=== PATIENT | male | born 1970 | race Caucasian/White ===

== ENCOUNTER 2018-12-12 19:19 | Emergency (ER) | payer BC ==
--- OUTSIDE RECORDS SUMMARY | 2018-12-12 19:22 | XMS REPORT | Encounter Summary ---
:1970 Author Reason for Visit Medical Complaint Instructions 1. Acute gastroenteritis ondansetron 8 mg disintegrating tablet 2. Influenza-like symptoms rapid flu (A+B) 3. Body mass index 25-29 - overweight 4. Elevated blood-pressure reading without diagnosis of hypertension elevated blood pressure: care instructions Discussion Note: None recorded. Plan of Care Patient Instructions Food Poisoning: Care Instructions Your Care Instructions Food poisoning occurs when you eat foods that contain harmful germs. Food can be contaminated while it is growing, during processing, or when it is prepared. Fresh fruits and vegetables also can be cont aminated if they are washed in contaminated water. You may have become ill after eating undercooked meat or eggs or other unsafe foods. Cooking foods thoroughly and storing them properly can help prevent food poisoning. There are many types of food poisoning. Your symptoms depend on the type of food poisoning you have. You will probably begin to feel better in 1 or 2 days. In the meantime, get plenty of rest and make sure that you do not become dehydrated. Follow-up care is a andrews part of your treatment and safety. Be sure to make and go to all appointments, and call your doctor if you are having problems. It s also a good idea to know your test results and keep a list of the medicines you take. How can you care for yourself at home? To prevent dehydration, drink plenty of fluids, enough so that your urine is light yellow or clear like water. Choose water and other caffeine-free clear liquids until you feel better. If you hav e kidney, heart, or liver disease and have to limit fluids, talk with your doctor before you increase the amount of fluids you drink. Begin eating small amounts of mild, low-fat foods, depending on how you feel. Try foods like rice, dry crackers, bananas, and applesauce. Avoid spicy foods, alcohol, and coffee until 48 hours after all symptoms have disappeared. Avoid chewing gum that contains sorbitol. Avoid dairy products for 3 days after symptoms disappear. Take your medicines as prescribed. Call your doctor if you think you are having a problem with your medicine. You will get more details on the specific medicines your doctor prescribes. To prevent food poisoning Keep hot foods hot and cold foods cold. Do not eat meats, dressings, salads, or other foods that have been kept at room temperature for more than 2 hours. Use a thermometer to check your refrigerator. It should be between 34 F and 40ÂF. Defrost meats in the refrigerator or microwave, not on the kitchen counter. Keep your hands and your kitchen clean. Wash your hands, cutting boards , and countertops with hot, soapy water. If you use the same cutting board for chopping vegetables and preparing raw meat, b e sure to wash the cutting board with hot, soapy water between each use. Cook meat until it is well done. Do not eat raw eggs or uncooked dough or sauces made with raw eggs. Do not take chances. If you think food looks or tastes spoiled, throw it out. When should you call for help? Call 911 anytime you think you may need emergency care. For example, call if: You have sudden, severe belly pain. You passed out (lost consciousness). You vomit blood or what looks like coffee grounds. You pass maroon or very bloody stools. Call your doctor now or seek immediate medical care if: You have signs of needing more fluids. You have sunken eyes and a dry mouth, and you pass only a little dark urine. Weakness in your legs makes it hard to stand or walk. You have swelling in your hands, face, or feet. You have trouble breathing. You are dizzy or lightheaded, or you feel like you may faint. Your stools are black and tarlike or have streaks of blood. You have numbness and tingling in your hands or feet. You have new nausea or vomiting. You have new or increased belly pain. Your joints ache. Watch closely for changes in your health, and be sure to contact your doctor if : Your vomiting is not getting better after 1 to 2 days. Your diarrhea is not getting better after 3 days. Where can you learn more? Go to www.[facility].Letsdecco, log into the web portal, and enter C880 in the search box to learn more about Food Poisoning: Care Instructions. Care instructions adapted under license by [facility]. This care instruction is for use with your licensed healthcare professional. If you have questions about a medical condition or this instruction, always ask your healthcare professional. [employer] disclaims any warranty or liability for your use of this information. When You Are Overweight: Care Instructions Your Care Instructions If you're overweight, your doctor may recommend that you make changes in your eating and exercise habits. Being overweight can lead to serious health problems , such as high blood pressure, heart disease , type 2 diabetes, and arthritis, or it can make these problems worse. Eating a healthy diet and being more active can help you reach and stay at a healthy weight. You dont have to make huge changes all at once. Start by making small changes in your eating and exercise habits. To lose weight, you need to burn more calories than you take in. You c an do this by eating healthy foods in reasonable amounts and becoming more active every day. Follow-up care is a andrews part of your treatment and safety. Be sure to make and go to all appointments, and call your doctor if you are having problems. It's also a good idea to know your test results and keep a list of the medicines you take. How can you care for yourself at home? Improve your eating habits. You'll be more successful if you work on changing one eating habit at a time. All foods, if eaten in moderation, can be part of healthy eating. Remember to: Eat a variety of foods from each food group. Include grains, vegetables, fruits , dairy, and protein foods. Limit foods high in fat, sugar, and calories. Eat slowly. And don't do anything else, such as watch TV, while you are eating. Pay attention to portion sizes. Put your food on a smaller plate. Plan your meals ahead of time. You'll be less likely to grab something that's not as healthy. Get active. Regular activity can help you feel better, have more energy, and burn more calories. If you haven't been active, start slowly. Start with at least 30 minutes of moderate activity on most day s of the week. Then gradually increase the amount of activity. Try for 60 or 90 minutes a day, at least 5 days a week. There are a lot of ways to fit activity into your life. You can: Walk or bike to the store. Or walk with a friend, or walk the dog. Mow the lawn, rake leaves, shovel snow, or do some gardening. Use the stairs instead of the elevator, at least for a few floors. Change your thinking. Your thoughts have a lot to do with how you feel and what you do. When you're trying to reach a healthy weight, changing how you think about certain things may help. Here are some ideas: Don't compare yourself to others. Healthy bodies come in all shapes and sizes. Pay attention to how hungry or full you feel. When you eat, be aware of why you 're eating and how much you're eating. Focus on improving your health instead of dieting. Dieting almost never works over the terminal make up operator. Ask your doctor about other health professionals who can help you reach a healthy weight. A dietitian can help you make healthy changes in your diet. An exercise equipment specialist or retail personal banker can help you develop a safe and effective exercise program. A counselor or psychiatrist can help you cope with issues such as depression, anxiety, or family problems that can make it hard to focus on reaching a healthy weight. Get support from your family, your doctor, your friends, a support groupand support yourself. Where can you learn more? Go to www.[facility].[employer]decco, log into the web portal, and enter L869 in the search box to learn more about When You Are Overweight: Care Instructions. Care instructions adapted under license by [facility]. This care instruction is for use with your licensed healthcare professional. If you have questions about a medical condition or this instruction, a lways ask your healthcare professional. [employer] disclaims any warranty or liability for your use of this information. Elevated Blood Pressure: Care Instructions Your Care Instructions Blood pressure is a measure of how hard the blood pushes against the long of your arteries. It's normal for blood pressure to go up and down throughout the day. But if it stays up over time, you have high blood pressure. Two numbers tell you your blood pressure. The first number is the systolic pressure. It shows how hard the blood pushes when your heart is pumping. The second number is the diastolic pressure. It shows how hard the blood pushes between heartbeats, when your heart is relaxed and filling with blood. An ideal blood pressure in adults is less than 120/80 (say "120 over 80"). High blood pressure is 140/90 or higher. You have high blood pressure if your top number is 140 or higher or your bottom number is 90 or higher, or both. The main test for high blood pressure is simple, fast, and painless. To diagnose high blood pressure, your doctor will test your blood pressure at different times. You may have to check your blood press ure at home if there is reason to think that the results in the doctor's office aren't accurate. If you are diagnosed with high blood pressure, you can work with your doctor to make a long-term plan to manage it. Follow-up care is a andrews part of your treatment and safety. Be sure to make and go to all appointments, and call your doctor if you are having problems. It's also a good idea to know your test results and keep a list of the medicines you take. How can you care for yourself at home? Do not smoke. Smoking increases your risk for heart attack and stroke. If you need help quitting, talk to your doctor about stop-smoking programs and medicines. These can increase your chances of quitting for good. Stay at a healthy weight. Try to limit how much sodium you eat to less than 2,300 milligrams (mg) a day. Your doctor may ask you to try to eat less than 1,500 mg a day. Be physically active. Get at least 30 minutes of exercise on most days of the week. Walking is a good choice. You also may want to do other activities, such as running, swimming, cycling, or playing tennis or team sports. Avoid or limit alcohol. Talk to your doctor about whether you can drink any alcohol. Eat plenty of fruits, vegetables, and low-fat dairy products. Eat less saturated and total fats. Learn how to check your blood pressure at home. When should you call for help? Call your doctor now or seek immediate medical care if: Your blood pressure is much higher than normal (such as 180/110 or higher). You think high blood pressure is causing symptoms such as: Severe headache. Blurry vision. Watch closely for changes in your health, and be sure to contact your doctor if : You do not get better as expected. Where can you learn more? Go to www.[facility].[employer]decco, log into the web portal, and enter F644 in the search box to learn more about Elevated Blood Pressure: Care Instructions. Care instructions adapted under license by [facility]. This care instruction is for use with your licensed healthcare professional. If you have questions about a medical condition or this instruction, a lways ask your healthcare professional. [employer] disclaims any warranty or liability for your use of this information. Reminders Provider Appointments None recorded. Lab Rapid Flu 04/07/2018 [facility] (A+B) Referral None recorded. Procedures None recorded. Surgeries None recorded. Imaging None recorded. Medications Name Start Date acetaminophen 300 mg-codeine 30 mg tablet benzonatate 200 mg capsule TAKE 1 CAPSULE(S) 3 TIMES A DAY BY ORAL ROUTE FOR 10 DAYS. cephalexin 250 mg capsule clindamycin HCl 300 mg capsule COMPOUNDED MEDICATION magic mouth wash: Viscous Lidocaine/ maalox/benadryl in 1:1:1 Gargle 15 ml q 6 hours and spit out prn 12OML hydrocodone 7.5 mg-acetaminophen 750 mg tablet ibuprofen 600 mg tablet ketoconazole 2 % shampoo methylprednisolone 4 mg tablets in a dose pack ondansetron [address] 1 tablet every 8 hours by translingual route as directed. ondansetron HCl 4 mg tablet Stool Softener 100 mg capsule tamsulosin 0.4 mg capsule Ventolin HFA 90 mcg/actuation aerosol inhaler INHALE 2 PUFF(S) EVERY 4-6 HOURS BY INHALATION ROUTE. Medications Administered None recorded. Vitals Height Weight BMI Blood Pressure 5 ft 10 in 175 lbs 25.1 kg/m2 (1) 130/80 mm[Hg] (2) 126/82 mm[Hg] Lab Results Date Name Specimen Result Interpretation Description Value Range Status Address Rapid Flu Influenza a negative [facility]: (A+B) [address] [place] [address] Influenza B negative [facility]: [address] [place] [address] Allergies Code Code System Name Reaction Severity Status Onset NKDA Problems Name Status Onset Date Source Acute Pharyngitis Active Encounter Headache Active Encounter Cough Active Encounter Procedures None recorded. Vaccine List Vaccine Type influenza, injectable, quadrivalent 03/27/2017 Social History Smoking Status Never Smoker Past Encounters 04/07/2018 Acute Gastroenteritis; Influenza-like Symptoms; Body Mass Index 25-29 - Overweight; Elevated Blood-pressure Reading without Diagnosis of Hypertension Gladys Mena, [facility]: [address], [address], [place] [address], Ph. History of Present Illness Gniyxp-Pavjpxdz-Byrtbhtg / Abdominal Pain Reported By: Patient HPI: Quality: worsening, soft, loose. Severity: moderate. Duration: present for < 1 week. Onset/Timing: no nocturnal symptoms, 1-3 times a day. Context: no recent camping, no recent picnic, no possible food sources, no recent travel, others with similar symptoms. Alleviating factors: OTC medication. Associated Symptoms: no excess gas, no fever/chills, no rash, no joint pain, no weight loss, no nausea, no heartburn, no blood in stool, no mucus in stool, no black or tarry stools, no weakness, no nutrient deficiency, no headache, no feeling of fullness/mass in throat, no bitter taste in the mouth, no difficulty swallowing (dysphagia), abdominal pain, vomiting, muscle aches Review of Systems Basic Reported By: Patient Constitutional: Constitutional: no fever Eyes: Eyes: no eye complaints Fuga-Gamy-Rwnim-Throat: Ears: no ear complaints. Nose: no nose/sinus problems. Mouth/Throat: no sore throat, no bleeding gums, no mouth complaints, no teeth problems Cardiovascular: Cardiovascular: no chest pain, no shortness of breath, no known heart murmur Respiratory: Respiratory: no cough, no wheezing, no shortness of breath Gastrointestinal: Gastrointestinal: abdominal pain, vomiting, diarrhea Genitourinary: Genitourinary: no urinary complaints, no discharge Musculoskeletal: Musculoskeletal: no muscle weakness, no arthralgias/joint pain, no back pain, muscle aches Skin: Skin: no abnormal / changing mole, no jaundice, no rashes Neurologic: Neurologic: no loss of consciousness, no weakness, no numbness, no seizures, no dizziness, no headaches Physical Exam Adult Basic, Adult Male Complete Reported By: Patient Constitutional: General Appearance: healthy-appearing, well-nourished, well-developed, overweight. Level of Distress: mild distress. Ambulation: ambulating normally Psychiatric: Mental Status: active and alert. Orientation: to time, to place, to person Lungs: Respiratory effort: no dyspnea, no tachypnea, no use of accessory muscles, no intercostal retractions. Auscultation: breath sounds normal, good air movement Cardiovascular: Heart Auscultation: RRR, no murmurs Neurologic: Gait and Station: normal gait, normal station Abdomen: Bowel Sounds: normal. Inspection and Palpation: soft, no guarding, no rebound tenderness, no masses, no CVA tenderness, suprapubic tenderness. Hernia: none palpable
--- OUTSIDE RECORDS SUMMARY | 2018-12-12 19:22 | XMS REPORT | Clinical Summary ---
:1970 Author Organization [facility] Address [address] [place] [address] Care Team Providers Name Role Phone July Mason MD Primary Care Provider Allergies Active Allergy Reactions Severity Noted Date Comments Tetanus Vaccines And Toxoid Swelling Medium 11/21/2017 Medications No known medications Active Problems Problem Noted Date Laceration of right index finger without foreign body with damage to nail 09/2017 Overview: Added automatically from request for surgery [id number] Laceration of right middle finger without foreign body without damage to 11/26 nail Overview: Added automatically from request for surgery [id number] Laceration of right ring finger without foreign body without damage to 2017 nail Overview: Added automatically from request for surgery [id number] Encounters Date Type Specialty Care Team Description 01/08/2018 Office Visit Orthopedic Surgery Eric Blackwood, Laceration of right ring finger without foreign body without damage to nail, subsequent encounter (Primary Dx); Laceration of right middle finger without foreign body without damage to nail, subsequent encounter; Laceration of right index finger w/o foreign body with damage to nail, subsequent encounter 12/11/2017 Office Visit Orthopedic Surgery Eric Blackwood, Laceration of right ring finger without foreign body without damage to nail, subsequent encounter (Primary Dx); Laceration of right middle finger without foreign body without damage to nail, subsequent encounter; Laceration of right index finger w/o foreign body with damage to nail, subsequent encounter after 12/11/2017 Family History Medical History Relation Name Comments Cancer Father LUNG-BRAIN Thyroid disease Mother Relation Name Status Comments Father Mother Alive Social History Tobacco Use Types Packs/Day Years Used Date Never Smoker Smokeless Tobacco: Never Used Alcohol Use Drinks/Week oz/Week Comments Yes Socially PER PT Sex Assigned at Date Recorded Not on file Job Start Date Occupation Industry Not on file Not on file Not on file Travel History Travel Start Travel End No recent travel history available. Last Filed Vital Signs Not on file Plan of Treatment Health Maintenance Due Date Last Done Comments INFLUENZA VACCINE 02/24/2019 Results Not on fileafter 12/11/2017 Advance Directives Patient has advance care planning documents on file. For more information, please contact:Bijan [address] [facility] [place] [address]
--- OUTSIDE RECORDS SUMMARY | 2018-12-12 19:22 | XMS REPORT | Continuity of Care Document ---
:1970 Author Organization Interface Problems Problem Status Onset Classification Date Comments Source Date Reported Elevated 04/07/20 Diagnosis 04/07/2018 [facility] blood-pressure 18 reading without diagnosis of hypertension Body mass index 04/07/20 Diagnosis 04/07/2018 [facility] 25-29 - overweight 18 Influenza-like 04/07/20 Diagnosis 04/07/2018 [facility] symptoms 18 Acute 04/07/20 Diagnosis 04/07/2018 [facility] gastroenteritis 18 Acute bronchitis 07/10/20 Diagnosis 07/11/2017 [facility] 17 Acute pharyngitis 07/10/20 Diagnosis 07/11/2017 [facility] 17 Acute Pharyngitis Problem 04/07/2018 [facility] Headache Problem 04/07/2018 [facility] Cough Problem 04/07/2018 [facility] Medications Medication Details Route Status Patient Ordering Order Source Instructions Provider Date Acetaminophen 300 acetaminophen Active [facility] MG / Codeine 300 mg-codeine Phosphate 30 MG 30 mg tablet Oral Tablet benzonatate 200 MG benzonatate 200 Active [facility] Oral Capsule mg capsule TAKE 1 CAPSULE(S) 3 TIMES A DAY BY ORAL ROUTE FOR 10 DAYS. Cephalexin 250 MG cephalexin 250 Active [facility] Oral Capsule mg capsule Clindamycin 300 MG clindamycin HCl Active [facility] Oral Capsule 300 mg capsule COMPOUNDED COMPOUNDED Active [facility] MEDICATION MEDICATION magic mouth wash: Viscous Lidocaine/ maalox/benadryl in 1:1:1 Gargle 15 ml q 6 hours and spit out prn 12OML Acetaminophen 750 hydrocodone 7.5 Active [facility] MG / Hydrocodone mg-acetaminophe Bitartrate 7.5 MG n 750 mg tablet Oral Tablet Ibuprofen 600 MG ibuprofen 600 Active [facility] Oral Tablet mg tablet Ketoconazole 20 ketoconazole 2 Active [facility] MG/ML Medicated % shampoo Shampoo methylprednisolone methylprednisol Active [facility] 4 mg tablets in a one 4 mg dose pack tablets in a dose pack Ondansetron 8 MG ondansetron 8 Active [facility] Disintegrating mg Oral Tablet disintegrating tablet Place 1 tablet every 8 hours by translingual route as directed. Ondansetron 4 MG ondansetron HCl Active [facility] Oral Tablet 4 mg tablet Docusate Sodium Stool Softener Active [facility] 100 MG Oral 100 mg capsule Capsule Tamsulosin tamsulosin 0.4 Active [facility] hydrochloride 0.4 mg capsule MG Oral Capsule Ventolin HFA 90 Ventolin HFA 90 Active [facility] mcg/actuation mcg/actuation aerosol inhaler aerosol inhaler INHALE 2 PUFF(S) EVERY 4-6 HOURS BY INHALATION ROUTE. Azithromycin 250 azithromycin Active [facility] MG Oral Tablet 250 mg tablet Take 2 tablets on day 1; then 1 tablet every day from day 2 to day 5 Acetaminophen 325 hydrocodone 10 Active [facility] MG / Hydrocodone mg-acetaminophe Bitartrate 10 MG n 325 mg tablet Oral Tablet Acetaminophen 300 hydrocodone 7.5 Active [facility] MG / Hydrocodone mg-acetaminophe Bitartrate 7.5 MG n 300 mg tablet Oral Tablet 200 ACTUAT ProAir HFA 90 Active [facility] Albuterol 0.09 mcg/actuation MG/ACTUAT Metered aerosol inhaler Dose Inhaler Inhale 2 puffs [ProAir] every 4-6 hours by inhalation route. Dextromethorphan promethazine-DM Active [facility] Hydrobromide 3 6.25 mg-15 mg/5 MG/ML / mL syrup Take 5 Promethazine mL every day by Hydrochloride 1.25 oral route at MG/ML Oral bedtime. Solution Allergies, Adverse Reactions, Alerts Substance Category Reaction Severity Reaction Status Date Comments Source type Reported Immunizations Immunization Date Given Site Status Last Comments Source Updated influenza, 03/27/2017 completed [facility] injectable, quadrivalent Results Order Results Value Reference Date Interpretation Comments Source Name Range Influenza A negative 04/07/ [facility] 2017 Influenza B negative 04/07/ [facility] 2017 RESULT negative 07/10/ [facility] 2016 SWAB Left and 07/10/ [facility] LOCATION Right 2017 tonsillar pillars Vital Signs Vital Sign Value Date Comments Source Diastolic (mm Hg) 82 04/07/2018 [facility] Height 70 04/07/2018 [facility] Systolic (mm Hg) 126 04/07/2018 [facility] Weight 175 04/07/2018 [facility] Diastolic (mm Hg) 88 07/10/2017 [facility] Height 70 07/10/2017 [facility] Systolic (mm Hg) 138 07/10/2017 [facility] Weight 180 07/10/2017 [facility] Encounters Location Location Encounter Encounter Reason Attending ADM DC Status Source Details Type Number For Provider Date Date Visit MAGNO Graham [id number] [place] 07/10 [facility] [place], [id number] [facility] - [facility]: [id number] [place] [address], [address] [place] [address] [place] [phone] , Ph. MAGNO Graham [id number] [place] 04/07 [facility] [place], [phone] [facility] - [facility]: [address] [id number] [place] [address], [address] [place] [phone] , Ph. Procedures Procedure Code Date Perfomer Comments Source
--- OUTSIDE RECORDS SUMMARY | 2018-12-12 19:22 | XMS REPORT | Encounter Summary ---
:1970 Author Reason for Visit Medical Complaint Instructions 1. Acute bronchitis bronchitis: care instructions ProAir HFA 90 mcg/actuation aerosol inhaler 2. Cough cough: care instructions benzonatate 200 mg capsule promethazine-DM 6.25 mg-15 mg/5 mL syrup 3. Acute pharyngitis rapid strep group A, throat sore throat: care instructions Discussion Note: None recorded. Plan of Care Patient Instructions Bronchitis: Care Instructions Your Care Instructions Bronchitis is inflammation of the bronchial tubes, which carry air to the lungs. The tubes swell and produce mucus, or phlegm. The mucus and inflamed bronchial tubes make you cough. You may have trouble breathing. Most cases of bronchitis are caused by viruses like those that cause colds. Antibiotics usually do not help and they may be harmful. Bronchitis usually develops rapidly and lasts about 2 to 3 weeks in otherwise healthy people. Follow-up care is a andrews part of your treatment and safety. Be sure to make and go to all appointments, and call your doctor if you are having problems. It's also a good idea to know your test results and keep a list of the medicines you take. How can you care for yourself at home? Take all medicines exactly as prescribed. Call your doctor if you think you are having a problem with your medicine. Get some extra rest. Take an onfc-nup-zefayvq pain medicine, such as acetaminophen (Tylenol), ibuprofen (Advil, Motrin), or naproxen (Aleve) to reduce fever and relieve body aches. Read and follow all instructions on the label. Do not take two or more pain medicines at the same time unless the doctor told you to. Many pain medicines have acetaminophen, which is Tylenol. Too much acetaminophen (Tylenol) can be harmful. Take an alze-jky-pgcarib cough medicine that contains dextromethorphan to help quiet a dry, hacking cough so that you can sleep. Avoid cough medicines that have more than one active ingredient. Read and follow all instructions on the label. Breathe moist air from a humidifier, hot shower, or sink filled with hot water. The heat and moisture will thin mucus so you can cough it out. Do not smoke. Smoking can make bronchitis worse. If you need help quitting, talk to your doctor about stop-smoking programs and medicines. These can increase your chances of quitting for good. When should you call for help? Call 911 anytime you think you may need emergency care. For example, call if: You have severe trouble breathing. Call your doctor now or seek immediate medical care if: You have new or worse trouble breathing. You cough up dark brown or bloody mucus (sputum). You have a new or higher fever. You have a new rash. Watch closely for changes in your health, and be sure to contact your doctor if : You cough more deeply or more often, especially if you notice more mucus or a change in the color of your mucus. You are not getting better as expected. Where can you learn more? Go to www.[employer], log into the web portal, and enter H333 in the search box to learn more about Bronchitis: Care Instructions. Care instructions adapted under license by [facility]. This care instruction is for use with your licensed healthcare professional. If you have questions about a medical condition or this instruction, a lways ask your healthcare professional. [employer] disclaims any warranty or liability for your use of this information. Cough: Care Instructions Your Care Instructions A cough is your body's response to something that bothers your throat or airways. Many things can cause a cough. You might cough because of a cold or the flu, bronchitis, or asthma. Smoking, postnasal d rip, allergies, and stomach acid that backs up into your throat also can cause coughs. A cough is a symptom, not a disease. Most coughs stop when the cause, such as a cold, goes away. You can take a few steps at home to cough less and feel better. Follow-up care is a andrews part of your treatment and safety. Be sure to make and go to all appointments, and call your doctor if you are having problems. It' s also a good idea to know your test results and keep a list of the medicines you take. How can you care for yourself at home? Drink lots of water and other fluids. This helps thin the mucus and soothes a dry or sore throat. Honey or lemon juice in hot water or tea may ease a dry cough. Take cough medicine as directed by your doctor. Prop up your head on pillows to help you breathe and ease a dry cough. Try cough drops to soothe a dry or sore throat. Cough drops don't stop a cough. Medicine-flavored cough drops are no better than candy-flavored drops or hard candy. Do not smoke. Avoid secondhand smoke. If you need help quitting, talk to your doctor about stop-smoking programs and medicines. These can increase your chances of quitting for good. When should you call for help? Call 911 anytime you think you may need emergency care. For example, call if: You have severe trouble breathing. Call your doctor now or seek immediate medical care if: You cough up blood. You have new or worse trouble breathing. You have a new or higher fever. You have a new rash. Watch closely for changes in your health, and be sure to contact your doctor if : You cough more deeply or more often, especially if you notice more mucus or a change in the color of your mucus. You have new symptoms, such as a sore throat, an earache, or sinus pain. You do not get better as expected. Where can you learn more? Go to www.[employer], log into the web portal, and enter D279 in the search box to learn more about Cough: Care Instructions. Care instructions adapted under license by [facility]. This care instruction is for use with your licensed healthcare professional. If you have questions about a medical condition or this instruction, always ask your healthcare professional. [employer] disclaims any warranty or liability for your use of this information. Sore Throat: Care Instructions Your Care Instructions Infection by bacteria or a virus causes most sore throats. Cigarette smoke, dry air, air pollution, allergies, and yelling can also cause a sore throat. Sore throats can be painful and annoying. Clarkson tely, most sore throats go away on their own. If you have a bacterial infection , your doctor may prescribe antibiotics. Follow-up care is a andrews part of your treatment and safety. Be sure to make and go to all appointments, and call your doctor if you are having problems. It's also a good idea to know your test results and keep a list of the medicines you take. How can you care for yourself at home? If your doctor prescribed antibiotics, take them as directed. Do not stop taking them just because you feel better. You need to take the full course of antibiotics. Gargle with warm salt water once an hour to help reduce swelling and relieve discomfort. Use 1 teaspoon of salt mixed in 1 cup of warm water. Take an nxlb-tuv-pbpqclb pain medicine, such as acetaminophen (Tylenol), ibuprofen (Advil, Motrin), or naproxen (Aleve). Read and follow all instructions on the label. Be careful when taking irfn-lyf-lyyinzn cold or flu medicines and Tylenol at the same time. Many of these medicines have acetaminophen, which is Tylenol. Read the labels to make sure that you are not ta lurdes more than the recommended dose. Too much acetaminophen (Tylenol) can be harmful. Drink plenty of fluids. Fluids may help soothe an irritated throat. Hot fluids , such as tea or soup, may help decrease throat pain. Use zvxk-eah-tfgpdvq throat lozenges to soothe pain. Regular cough drops or hard candy may also help. These should not be given to young children because of the risk of choking. Do not smoke or allow others to smoke around you. If you need help quitting, talk to your doctor about stop-smoking programs and medicines. These can increase your chances of quitting for good. Use a vaporizer or humidifier to add moisture to your bedroom. Follow the directions for cleaning the machine. When should you call for help? Call your doctor now or seek immediate medical care if: You have new or worse trouble swallowing. Your sore throat gets much worse on one side. Watch closely for changes in your health, and be sure to contact your doctor if you do not get better as expected. Where can you learn more? Go to www.[employer], log into the web portal, and enter U420 in the search box to learn more about Sore Throat: Care Instructions. Care instructions adapted under license by [facility]. This care instruction is for use with your licensed healthcare professional. If you have questions about a medical condition or this instruction, a lways ask your healthcare professional. [employer] disclaims any warranty or liability for your use of this information. Reminders Provider Appointments None recorded. Lab Rapid Strep 07/10/2017 [facility], Throat Referral None recorded. Procedures None recorded. Surgeries None recorded. Imaging None recorded. Medications Name Start Date azithromycin 250 mg tablet Take 2 tablets on day 1; then 1 tablet every day from day 2 to day 5 benzonatate 200 mg capsule Take 1 capsule 3 times a day by oral route for 10 days. cephalexin 250 mg capsule COMPOUNDED MEDICATION magic mouth wash: Viscous Lidocaine/ maalox/benadryl in 1:1:1 Gargle 15 ml q 6 hours and spit out prn 12OML hydrocodone 10 mg-acetaminophen 325 mg tablet hydrocodone 7.5 mg-acetaminophen 300 mg tablet hydrocodone 7.5 mg-acetaminophen 750 mg tablet ibuprofen 600 mg tablet methylprednisolone 4 mg tablets in a dose pack ondansetron HCl 4 mg tablet ProAir HFA 90 mcg/actuation aerosol inhaler Inhale 2 puffs every 4-6 hours by inhalation route. promethazine-DM 6.25 mg-15 mg/5 mL syrup Take 5 mL every day by oral route at bedtime. Stool Softener 100 mg capsule tamsulosin 0.4 mg capsule Medications Administered None recorded. Vitals Height Weight BMI Blood Pressure 5 ft 10 in 180 lbs 25.8 kg/m2 138/88 mm[Hg] Lab Results Date Name Specimen Result Interpretation Description Value Range Status Address Rapid Strep Result negative [facility]: Group a, [address] [place] [address] Swab [facility] Right [facility]: Location tonsillar [address] [place] [address] Allergies Code Code System Name Reaction Severity Status Onset NKDA Problems Name Status Onset Date Source Acute Pharyngitis Active Encounter Headache Active Encounter Cough Active Encounter Procedures None recorded. Vaccine List None recorded. Social History Smoking Status Never Smoker Past Encounters 07/10/2017 Acute Bronchitis; Cough; Acute Pharyngitis Gladys Mena, [facility]: [address], [address], [place] [address], Ph. History of Present Illness Throat-Oral Complaint Reported By: Patient HPI: Location: throat. Quality: sore throat, congested. Severity: moderate. Duration: 2 days. Onset/Timing: sudden. Context: no sick contacts, no foreign travel, non-smoker. Modifying factors: OTC medication. Associated Symptoms: no sputum production, no wheezing, no change in number of pillows needed to sleep at night, no sweats, no significant weight gain, no significant weight loss, no morning cough, no vomiting, no diarrhea, no rash, no nausea, shortness of breath, sore throat Review of Systems Basic Reported By: Patient Constitutional: Constitutional: no fever Eyes: Eyes: no eye complaints Lbcz-Lkws-Tfybl-Throat: Ears: no ear complaints. Nose: nose/sinus problems. Mouth/Throat: no bleeding gums, no mouth complaints, no teeth problems, sore throat Cardiovascular: Cardiovascular: no chest pain, no known heart murmur Respiratory: Respiratory: no wheezing, shortness of breath Gastrointestinal: Gastrointestinal: no abdominal pain, no vomiting / diarrhea Genitourinary: Genitourinary: no urinary complaints, no discharge Musculoskeletal: Musculoskeletal: no muscle aches, no muscle weakness, no arthralgias/joint pain, no back pain Skin: Skin: no abnormal / changing mole, no jaundice, no rashes Neurologic: Neurologic: no loss of consciousness, no weakness, no numbness, no seizures, no dizziness, no headaches Physical Exam Adult Basic, Adult Male Complete Reported By: Patient Constitutional: General Appearance: healthy-appearing, well-nourished, well-developed. Level of Distress: mild distress. Ambulation: ambulating normally Psychiatric: Mental Status: active and alert. Orientation: to time, to place, to person Cfc-Gtpx-Lxfpq-Throat: Ears: no lesions on external ear, no outer ear tenderness, EACs clear. Hearing: no hearing loss. Nose: no lesions on external nose, nares patent, no septal deviation, nasal passages clear, no sinus tenderness, no nasal discharge. Lips, Teeth, and Gums: no mouth or lip ulcers, no bleeding gums, normal dentition. Oropharynx: moist mucous membranes, no erythema, no exudates, tonsils not enlarged Neck: Neck: supple, trachea midline. Lymph Nodes: no cervical LAD, no supraclavicular LAD Lungs: Respiratory effort: no dyspnea, no tachypnea, no use of accessory muscles, no intercostal retractions. Auscultation: rhonchi Cardiovascular: Heart Auscultation: RRR, no murmurs Neurologic: Gait and Station: normal gait, normal station
[2018-12-12] MEDS ORDERED: KETOROLAC 30 MG/ML INJ ONE (19:48)
[2018-12-12 20:03] LABS: Potassium 3.5 mmol/L (3.5-5.1)
[2018-12-12 20:05] LABS: Absolute Lymphocytes (CBC) 0.9 K/uL (0.7-4.9); Absolute Monocytes 0.5 K/uL (0.1-1.3); Absolute Neutrophil 5.4 K/uL (1.8-8.0); Basophils % 0.3 % (0-1.3); Eosinophils % 1.4 % (0-4.4); Lymphocytes % 13.3 % (15.3-44.8); MPV 8.8 fL (7.6-11.3); RBC Red Blood Cell Count 4.85 M/uL (4.33-5.43)
--- NOTE | 2018-12-12 20:28 | RAD REPORT ---
EXAM DESCRIPTION: CT - Stone Protocol - 12/12/2018 8:15 pm CLINICAL HISTORY: Flank pain. FLANK PAIN COMPARISON: <Comparisons> TECHNIQUE: Axial images were obtained without oral or IV contrast. Lack of contrast limits solid org an and vascular assessment. The imjaa-jl-fobz spans the entirety of the system partially obscuring uppermost abdomen and lung bases. Coronal reformatted images were obtained and reviewed. All CT scans are performed using dose optimization technique as appropriate and may include automated exposure control or mA/KV adjustment according to patient size. FINDINGS: The lower lung valdivia are clear. Imaged portions of the liver and spleen show no suspicious findings on non-contrast imaging. The panc reas and adrenal glands are normal. No pathologic lymphadenopathy in the abdomen or pelvis. 2 mm calculus is present in the urinary bladder, presumably a recently passed stone. No additional calculus or hydronephrosis. No bowel obstruction, free air, free fluid or abscess. Normal appendix noted. No significant bony abnormality. IMPRESSION: 2 mm calculus is present in the urinary bladder, likely recently passed stone.
--- NOTE | 2018-12-12 21:09 | ER ---
Nurse's Notes [facility] Name: Tacos Hayden Age: 48 yrs Sex: Male : 1970 Arrival Date: 12/12/2018 Time: 19:24 Bed 26 Private MD: Diagnosis: Calculus in bladder-passed Presentation: 12/12 19:24 Presenting complaint: Patient states: I have been having severe pain for about 30-40 la1 minutes it feels like a kidney stone. Transition of care: patient was not received from another setting of care. Onset of symptoms was December 12, 2018. Risk Assessment: Do you want to hurt yourself or someone else? Patient reports no desire to harm self or others. Initial Sepsis Screen: Does the patient meet any 2 criteria? No. Patient's initial sepsis screen is negative. Does the patient have a suspected source of infection? No. Patient's initial sepsis screen is negative. Care prior to arrival: None. 19:24 Method Of Arrival: Ambulatory la1 19:24 Acuity: DWAYNE 3 la1 Historical: - Allergies: 19:24 Tetanus Vaccines \T\ Toxoid; la1 - PMHx: 19:24 Kidney stones; la1 - PSHx: 19:24 lithrotripsy; la1 - Immunization history:: Adult Immunizations up to date. - Social history:: Smoking status: Patient/guardian denies using tobacco. - Ebola Screening: : No symptoms or risks identified at this time. Screenin:41 Abuse screen: Denies threats or abuse. Nutritional screening: No deficits noted. la1 Tuberculosis screening: No symptoms or risk factors identified. Fall Risk None identified. Assessment: 19:41 General: Appears uncomfortable, Behavior is calm, cooperative. Pain: Complains of pain la1 in back and abdomen. Neuro: Level of Consciousness is awake, alert, obeys commands, Oriented to person, place, time, situation. Cardiovascular: Capillary refill < 3 seconds Patient's skin is warm and dry. Respiratory: Airway is patent Respiratory effort is even, unlabored, Respiratory pattern is regular, symmetrical, Breath sounds are clear bilaterally. GI: Abdomen is round non-distended, Bowel sounds present X 4 quads. : No signs and/or symptoms were reported regarding the genitourinary system. 21:55 Reassessment: Patient appears in no apparent distress at this time. No changes from la1 previously documented assessment. Patient and/or family updated on plan of care and expected duration. Pain level reassessed. Patient is alert, oriented x 3, equal unlabored respirations, skin warm/dry/pink. Vital Signs: 19:26 Pulse 67; Resp 16; Temp 98.6; Pulse Ox 98% on R/A; Weight 79.38 kg; Height 5 ft. 10 in. la1 (177.80 cm); Pain 8/10; 19:27 BP 134 / 91; la1 19:26 Body Mass Index 25.11 (79.38 kg, 177.80 cm) la1 ED Course: 19:24 Patient arrived in ED. es 19:24 Arm band placed on left wrist. la1 19:25 Triage completed. la1 19:28 [facility]-C [facility]. kb 19:28 Femi Parker MD is Attending Physician. kb 19:33 Dani Mota, LETITIA is Primary Nurse. rv 19:41 No provider procedures requiring assistance completed. Inserted saline lock: 20 gauge la1 in left antecubital area, using aseptic technique. Blood collected. 19:42 Call light in reach. la1 20:[address] mw3 20:13 CT completed. Patient tolerated procedure well. Patient moved back from CT. mw3 20:15 CT Stone Protocol In Process Unspecified. EDMS 21:55 IV discontinued, intact, bleeding controlled, No redness/swelling at site. Pressure la1 dressing applied. Administered Medications: 19:42 Drug: TORadol 30 mg Route: IVP; Site: left antecubital; la1 21:57 Follow up: Response: No adverse reaction; Pain is decreased la1 21:15 Drug: NS 0.9% 1000 ml Route: IV; Rate: 1000 ml; Site: left antecubital; la1 21:57 Follow up: IV Status: Completed infusion la1 Outcome: 21:08 Discharge ordered by . kb 21:55 Discharged to home ambulatory. la1 21:55 Condition: stable 21:55 Discharge instructions given to patient, Instructed on discharge instructions, follow up and referral plans. medication usage, Demonstrated understanding of instructions, follow-up care, medications, Prescriptions given X 1. 21:59 Patient left the ED. la1 Signatures: Dispatcher [employer] Jenny Jiang, SYSTEM ADMINISTRATION ADVISOR-C SYSTEM ADMINISTRATION ADVISOR-Ckb Kassi Grigsby Lee RN RN la1 Anai Suh 3 Dani Mota, RN RN rv
--- NOTE | 2018-12-12 21:09 | EDPHYS ---
Physician Documentation [facility] Name: Tacos Hayden Age: 48 yrs Sex: Male : 1970 Arrival Date: 12/12/2018 Time: 19:24 Bed 26 Private MD: ED Physician Femi Parker HPI: 12/12 21:37 This 48 yrs old Male presents to ER via Ambulatory with complaints of kb Possible Kidney Stone. 21:37 The patient complains of pain in the right flank. The pain does not radiate. Onset: The kb symptoms/episode began/occurred yesterday. Modifying factors: The symptoms are alleviated by nothing. the symptoms are aggravated by nothing. Associated signs and symptoms: Pertinent positives: nausea, Pertinent negatives: diarrhea, dizziness, dysuria, fever, urinary frequency, headache, hematuria, pain radiating to the lower extremities, vomiting. Severity of pain: At its worst the pain was moderate in the emergency department the pain is unchanged. The patient has experienced similar episodes in the past. The patient has not recently seen a physician. 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 History of kidney stones and this pain is similar to ones he has had in the past. Historical: - Allergies: 19:24 Tetanus Vaccines \T\ Toxoid; la1 - PMHx: 19:24 Kidney stones; la1 - PSHx: 19:24 lithrotripsy; la1 - Immunization history:: Adult Immunizations up to date. - Social history:: Smoking status: Patient/guardian denies using tobacco. - Ebola Screening: : No symptoms or risks identified at this time. ROS: 21:40 Constitutional: Negative for fever, chills, and weight loss, Cardiovascular: Negative kb for chest pain, palpitations, and edema, Respiratory: Negative for shortness of breath, cough, wheezing, and pleuritic chest pain, Abdomen/GI: Negative for abdominal pain, nausea, vomiting, diarrhea, and constipation, MS/Extremity: Negative for injury and deformity, Skin: Negative for injury, rash, and discoloration, Neuro: Negative for headache, weakness, numbness, tingling, and seizure. 21:40 : Positive for flank pain, difficulty urinating. Exam: 21:40 Constitutional: This is a well developed, well nourished patient who is awake, alert, kb and in no acute distress. Head/Face: Normocephalic, atraumatic. Chest/axilla: Normal chest wall appearance and motion. Nontender with no deformity. No lesions are appreciated. Cardiovascular: Regular rate and rhythm with a normal S1 and S2. No gallops, murmurs, or rubs. Normal PMI, no JVD. No pulse deficits. Respiratory: Lungs have equal breath sounds bilaterally, clear to auscultation and percussion. No rales, rhonchi or wheezes noted. No increased work of breathing, no retractions or nasal flaring. Abdomen/GI: Soft, non-tender, with normal bowel sounds. No distension or tympany. No guarding or rebound. No evidence of tenderness throughout. Skin: Warm, dry with normal turgor. Normal color with no rashes, no lesions, and no evidence of cellulitis. MS/ Extremity: Pulses equal, no cyanosis. Neurovascular intact. Full, normal range of motion. Neuro: Awake and alert, GCS 15, oriented to person, place, time, and situation. Cranial nerves II-XII grossly intact. Motor strength 5/5 in all extremities. Sensory grossly intact. Cerebellar exam normal. Normal gait. 21:40 Back: CVA tenderness, that is moderate, is noted on the right. Vital Signs: 19:26 Pulse 67; Resp 16; Temp 98.6; Pulse Ox 98% on R/A; Weight 79.38 kg; Height 5 ft. 10 in. la1 (177.80 cm); Pain 8/10; 19:27 BP 134 / 91; la1 19:26 Body Mass Index 25.11 (79.38 kg, 177.80 cm) la1 MDM: 19:31 Patient medically screened. kb 20:34 Data reviewed: vital signs, nurses notes. Data interpreted: Pulse oximetry: on room air kb is 98 %. Interpretation: normal. Counseling: I had a detailed discussion with the patient and/or guardian regarding: the historical points, exam findings, and any diagnostic results supporting the discharge/admit diagnosis, lab results, radiology results, the need for outpatient follow up, a urologist, to return to the emergency department if symptoms worsen or persist or if there are any questions or concerns that arise at home. 21:41 ED course: Pain resolved after toradol. Stone was passed when pt gave urine sample. . kb 12/12 19:32 Order name: CBC with Diff; Complete Time: 20:08 kb 12/12 19:32 Order name: Basic Metabolic Panel; Complete Time: 20:07 kb 12/12 19:32 Order name: CT Stone Protocol; Complete Time: 20:34 kb 12/12 20:57 Order name: Urine Dipstick--Ancillary (enter results) ar5 12/12 19:32 Order name: IV Start; Complete Time: 19:42 kb 12/12 20:34 Order name: Urine Dipstick-Ancillary (obtain specimen); Complete Time: 21:15 kb Administered Medications: 19:42 Drug: TORadol 30 mg Route: IVP; Site: left antecubital; la1 21:57 Follow up: Response: No adverse reaction; Pain is decreased la1 21:15 Drug: NS 0.9% 1000 ml Route: IV; Rate: 1000 ml; Site: left antecubital; la1 21:57 Follow up: IV Status: Completed infusion la1 Disposition: 12/13 06:54 Co-signature as Attending Physician, Femi Parker MD I agree with the assessment and tw4 plan of care. Disposition: 12/12/18 21:08 Discharged to Home. Impression: Calculus in bladder - passed. - Condition is Stable. - Discharge Instructions: Kidney Stones, [id number], Dietary Guidelines to Help Prevent Kidney Stones. - Prescriptions for Diclofenac Sodium 75 mg Oral Tablet, Delayed Release (E.C.) - take 1 tablet by ORAL route 2 times per day As needed; 30 tablet. - Medication Reconciliation Form, Thank You Letter, Antibiotic Education, Prescription Opioid Use form. - Follow up: Emergency Department; When: As needed; Reason: Worsening of condition. Follow up: Private Physician; When: 2 - 3 days; Reason: Recheck today's complaints, Continuance of care, Re-evaluation by your physician. Signatures: Dispatcher [employer] Jenny Jiang FNP-C FNP-Kenn Mcnally RN RN Femi Martell MD MD tw4 Corrections: (The following items were deleted from the chart) 12/12 21:59 21:08 12/12/2018 21:08 Discharged to Home. Impression: Calculus in bladder - passed. la1 Condition is Stable. Forms are Medication Reconciliation Form, Thank You Letter, Antibiotic Education, Prescription Opioid Use. Follow up: Emergency Department; When: As needed; Reason: Worsening of condition. Follow up: Private Physician; When: 2 - 3 days; Reason: Recheck today's complaints, Continuance of care, Re-evaluation by your physician. kb
[2018-12-12] MEDS ORDERED: NA CHLORIDE 0.9% 1,000 ML ONE (21:10)
[2018-12-12 22:10] LABS: Urine Blood 2+ (NEG); Urine Glucose NEGATIVE (NEG); Urine Protein 1+ (NEG); Urine Specific Gravity 1.025 (1.005-1.030)
== END 2018-12-12 21:59 | disposition home or self-care (01) ==
LOC: ER 19:19
DX: N21.0 Calculus in bladder (principal); Z88.7 Allergy status to serum and vaccine; Z87.442 Personal history of urinary calculi
CPT/HCPCS: 36415; 74176; 76377; 80048; 81003; 85025; 96361; 96374; 99284; J7030